=== PATIENT | female | born 1975 | race Caucasian/White ===

== ENCOUNTER 2021-10-08 16:31 | Emergency (ER) | payer MEDICAID ==
[~2021-10-08] VITALS: Ht 162.6 cm; Wt 77.1 kg
[2021-10-08] MEDS ORDERED: MORPHINE SULFATE INJ 10 MG/ML DISP.SYRIN IV ONE (17:00)
[2021-10-08] MEDS ORDERED: KETOROLAC TROMETHAMINE INJ 30 MG/ML VIAL IV ONE (17:00)
[2021-10-08] MEDS ORDERED: MORPHINE SULFATE INJ 4 MG/ML DISP.SYRIN ONE (17:11)
[2021-10-08] MEDS ORDERED: KETOROLAC TROMETHAMINE 15 MG/ML VIAL ONE (17:11)
--- NOTE | 2021-10-08 17:33 | NUR ---
BIBRA FROM WORK C/O LOWER BACK PAIN P/S 07/26 AFTER PULLING A COFFEE TABLE. PT ALERT OX3, COOPERATIVE. NO NAUSEA OR VOMITING NOTED
[2021-10-08] MEDS ORDERED: CYCL10TA9 PO (18:24)
[2021-10-08] MEDS ORDERED: [UNRECOGNIZED DRUG - CODE] PO (18:24)
--- NOTE | 2021-10-08 18:56 | NUR ---
IV removed. Catheter intact and site benign. Pressure and 4x4 applied to site. No bleeding noted. Patient discharged to home in stable condition. Written and verbal after care instructions given. Patient verbalizes understanding of instruction.
[2021-10-08 18:57] VITALS: BP 132/80
== END 2021-10-08 18:58 | disposition home or self-care (01) ==
LOC: ER 17:25
DX: S39.012A Strain of muscle, fascia and tendon of lower back, initial encounter (principal); X50.0XXA Overexertion from strenuous movement or load, initial encounter; Y93.89 Activity, other specified; Y92.89 Other specified places as the place of occurrence of the external cause; Y99.8 Other external cause status
CPT/HCPCS: 72110; 96374; 96375; 99284; J1885; J2270